=== PATIENT | male | born 1945 | race Caucasian/White ===

== ENCOUNTER 2018-12-25 15:45 | Emergency (ER) | payer MEDICARE, MEDICAID ==
[2018-12-25 16:03] VITALS: BP 162/89
--- NOTE | 2018-12-25 16:57 | UC ---
Skin Complaint HPI - HPI Summary HPI Summary: Mr. Alex has had a painful lesion on his left forearm for about a week. He is unaware of any injury. At one point it puffed up and pus came out. Since that time there are other areas that have opened up and a little bit of pulses has come out. - History of Current Complaint Chief Complaint: UCUpperExtremity Stated Complaint: LEFT ARM SORES-SKIN ISSUE Hx Obtained From: Patient Onset/Duration: Gradual Onset, Lasting Days - 7 Timing: Constant Onset Severity: Mild Current Severity: Mild Pain Intensity: 2 Aggravating Factor(s): Nothing Alleviating Factor(s): Nothing Associated Signs & Symptoms: Positive: Negative - Allergy/Home Medications Allergies/Adverse Reactions: Allergies Allergy/AdvReac Type Severity Reaction Status Date / Time No Known Allergies Allergy Verified 12/25/18 16:03 Home Medications: Home Medications Glimepiride 1 tab PO BID 12/25/18 [History Confirmed 12/25/18] Linagliptin (NF) [Tradjenta (NF)] 1 tab PO DAILY 12/25/18 [History Confirmed 10/08] PMH/Surg Hx/FS Hx/Imm Hx Endocrine History: Diabetes, Dyslipidemia GI/ History: Gastroesophageal Reflux - Surgical History Surgical History: Yes Surgery Procedure, Year, and Place: 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 cholecystectomy. MOLES REMOVED, BENIGN - Social History Alcohol Use: None Substance Use Type: None Smoking Status (MU): Current Every Day Smoker Type: Cigarettes Amount Used/How Often: 1 PPD Review of Systems All Other Systems Reviewed And Are Negative: Yes Constitutional: Positive: Negative Skin: Positive: Rash Neurovascular: Positive: Negative Musculoskeletal: Positive: Negative Neurological: Positive: Negative Physical Exam - Summary Physical Exam Summary: He is nontoxic in appearance with stable vital signs. Triage Information Reviewed: Yes Appearance: Well-Appearing Vital Signs: Initial Vital Signs Temp 98.4 F 12/25/18 16:00 Pulse 89 12/25/18 16:00 Resp 16 12/25/18 16:00 BP 162/89 12/25/18 16:00 Pulse Ox 98 12/25/18 16:00 Vital Signs Reviewed: Yes Musculoskeletal Exam: Normal Neurological Exam: Normal Psychological Exam: Normal Skin: Positive: Significant Lesion(s) - He has an erythematous, indurated, nonfluctuant area on his left dorsal forearm. It is spontaneously draining. It is tender. Course/Dx - Course Course Of Treatment: He has a cellulitic area that may be forming an abscess. There is nothing to drain at this time aside from what is draining spontaneously. I wouldn't be surprised this is MRSA and I'm going to treat him with doxycycline. - Diagnoses Provider Diagnosis: Cellulitis and abscess of upper extremity Discharge - Sign-Out/Discharge Documenting (check all that apply): Patient Departure All imaging exams completed and their final reports reviewed: No Studies - Discharge Plan Condition: Stable Disposition: HOME Patient Education Materials: Cellulitis (ED) Referrals: Marialuisa See MD [Primary Care Provider] - Additional Instructions: If this lesion is not improving in 2 days or if you develop a fever or any other symptoms please code to the emergency department for further evaluation. - Billing Disposition and Condition Condition: STABLE Disposition: Home
== END 2018-12-25 17:00 | disposition home or self-care (01) ==
LOC: UCEAST 15:45
DX: L03.114 Cellulitis of left upper limb (principal); E11.9 Type 2 diabetes mellitus without complications; E78.5 Hyperlipidemia, unspecified; K21.9 Gastro-esophageal reflux disease without esophagitis; F17.210 Nicotine dependence, cigarettes, uncomplicated
CPT/HCPCS: 99212; G0463

== ENCOUNTER 2020-08-25 11:09 | Inpatient (IN) ==
[2020-08-25 12:00] LABS: ABS Basophils 0.1 10^3/ul (0-0.2); ABS Eosinophils 0.2 10^3/ul (0-0.6); ABS Lymphocytes 1.4 10^3/ul (1.0-4.8); ABS Monocytes 0.7 10^3/ul (0-0.8); ABS Neutrophils 3.6 10^3/ul (1.5-7.7); Eosinophil % 2.6 %; Hematocrit 38 % (42-52); Hemoglobin 12.5 g/dL (14.0-18.0); Lymphocyte % 23.2 %; Mean Corpuscular HGB Conc 33 g/dL (31-36); Mean Corpuscular Hemoglobin 31 pg (27-31); Mean Corpuscular Volume 93 fL (80-94); Mean Platelet Volume 7.1 fL (7.4-10.4); Nucleated Red Blood Cells % 0.1; Platelet Count 101 10^3/uL (150-450); Red Blood Count 4.07 10^6 /uL (4.18-5.48); Red Cell Distribution Width 15 % (10-15); White Blood Count 5.9 10^3/uL (3.5-10.8)
[2020-08-25 12:18] LABS: ALT 16 U/L (7-52); Albumin 2.3 g/dL (3.2-5.2); Albumin/Globulin Ratio 0.5 (1-3); Alkaline Phosphatase 85 U/L (34-104); BUN/Creatinine Ratio 18.1 (8-20); Blood Urea Nitrogen 25 mg/dL (6-24); C Reactive Protein 19.48 mg/L (<8.01); CO2 Carbon Dioxide 26 mmol/L (22-32); Calcium 8.2 mg/dL (8.6-10.3); Chloride 102 mmol/L (101-111); EGFR African American 61.1 (>60); EGFR Non-African American 50.5 (>60); Globulin 4.8 g/dL (2-4); Glucose 174 mg/dL (70-100); Lipase 25 U/L (11.0-82.0); Magnesium 1.8 mg/dL (1.9-2.7); Sodium 133 mmol/L (135-145); Total Protein 7.1 g/dL (6.4-8.9)
[2020-08-25 12:19] LABS: Troponin I 0.27 ng/mL (<0.03)
[2020-08-25 12:26] LABS: Acetaminophen < 15 mcg/mL; Alcohol, S < 10 mg/dL (<10)
[2020-08-25 12:32] LABS: INR 1.38 (0.82-1.09)
[2020-08-25 12:47] LABS: AST 32 U/L (13-39); Anion Gap 5 mmol/L (2-11); Potassium 4.2 mmol/L (3.5-5.0)
[2020-08-25] MEDS ORDERED: fentaNYL 100 mcg/2 ml 50 MCG/ML VIAL IV SLOW PU ONE (13:59)
[2020-08-25] MEDS ORDERED: Magnesium Hydroxide LIQ 30 ML UDC PO PRN (14:08)
[2020-08-25] MEDS ORDERED: Ondansetron 4 mg VIAL 2 MG/ML 2 ml VIAL IV PRN (14:08)
[2020-08-25] MEDS ORDERED: Furosemide 40 mg/4 ml IV VIAL IV ONE (14:15)
[2020-08-25] MEDS ORDERED: Dextrose 50% Syringe 50 ml 25 GM/50 ML SYRINGE IV PUSH PRN (14:36)
[2020-08-25] MEDS ORDERED: Furosemide 40 mg/4 ml IV VIAL IV SCH (15:00)
[2020-08-25] MEDS ORDERED: Labetalol IV 5 MG/ML 20 ml VIAL IV PUSH PRN (15:00)
[2020-08-25 15:18] LABS: Body Fluid Source Peritonial Fluid
[2020-08-25 16:48] LABS: Body Fluid Mono 27 %
[2020-08-25 16:54] LABS: TSH Ultra Thyroid Stim Horm 1.55 mcIU/mL (0.34-5.60)
[2020-08-25 16:58] LABS: Ferritin 34.8 ng/mL (24-336)
[2020-08-25 17:07] LABS: Hepatitis B Surface Antigen Nonreactive (Nonreactive)
[2020-08-25 17:12] LABS: Hepatitis A Ab IgM Negative (Negative)
[2020-08-25 17:13] LABS: Hepatitis B Core IgM Nonreactive (Nonreactive)
[2020-08-25 17:24] LABS: Hepatitis C Antibody Negative (Negative)
[2020-08-25 17:46] LABS: Troponin I 0.32 ng/mL (<0.03)
[2020-08-25] MEDS: Azithromycin 500 mg/250 ml NS 500 MG/250 ML BAG IVPB SCH (18:49)
[2020-08-25] MEDS: cefTRIAXone 1 gm/50 mL NS BAG 1 GM/50 ML BAG IVPB SCH (18:50)
[2020-08-25] MEDS: Aspirin EC 81 mg TAB.EC (enteric coated) PO SCH (18:50)
[2020-08-25] MEDS: Heparin 5000 UNITS/ML 1 mL VIAL SUBCUT SCH (21:52)
[2020-08-25] MEDS ORDERED: Insulin GLARGINE 100 un/ml 10 ml VIAL SUBCUT SCH (23:00)
[2020-08-26] MEDS: Heparin 5000 UNITS/ML 1 mL VIAL SUBCUT SCH ×3 (06:00→20:59)
[2020-08-26 06:27] LABS: ALT 11 U/L (7-52); AST 24 U/L (13-39); Albumin 1.7 g/dL (3.2-5.2); Albumin/Globulin Ratio 0.5 (1-3); Alkaline Phosphatase 68 U/L (34-104); Anion Gap 4 mmol/L (2-11); BUN/Creatinine Ratio 19.4 (8-20); Blood Urea Nitrogen 28 mg/dL (6-24); CO2 Carbon Dioxide 27 mmol/L (22-32); Calcium 7.7 mg/dL (8.6-10.3); Chloride 104 mmol/L (101-111); EGFR African American 58.2 (>60); EGFR Non-African American 48.1 (>60); Globulin 3.4 g/dL (2-4); Glucose 121 mg/dL (70-100); Potassium 4.3 mmol/L (3.5-5.0); Sodium 135 mmol/L (135-145); Total Protein 5.1 g/dL (6.4-8.9)
[2020-08-26 06:29] LABS: Troponin I 0.25 ng/mL (<0.03)
[2020-08-26 06:38] LABS: INR 1.55 (0.82-1.09)
[2020-08-26 07:10] LABS: Hematocrit 30 % (42-52); Mean Corpuscular HGB Conc 33 g/dL (31-36); Mean Corpuscular Hemoglobin 31 pg (27-31); Mean Corpuscular Volume 93 fL (80-94); Red Blood Count 3.24 10^6 /uL (4.18-5.48); Red Cell Distribution Width 15 % (10-15); White Blood Count 4.2 10^3/uL (3.5-10.8)
[2020-08-26] MEDS: Insulin GLARGINE 100 un/ml 10 ml VIAL SUBCUT SCH (08:29)
[2020-08-26] MEDS: Aspirin EC 81 mg TAB.EC (enteric coated) PO SCH (08:32)
[2020-08-26 08:44] LABS: ABS Basophils 0.1 10^3/ul (0-0.2); ABS Eosinophils 0.1 10^3/ul (0-0.6); ABS Lymphocytes 1.1 10^3/ul (1.0-4.8); ABS Monocytes 0.6 10^3/ul (0-0.8); ABS Neutrophils 2.4 10^3/ul (1.5-7.7); Eosinophil % 2.2 %; Lymphocyte % 26.5 %; Mean Platelet Volume 7.2 fL (7.4-10.4); Nucleated Red Blood Cells % 0.1; Platelet Count 69 10^3/uL (150-450)
[2020-08-26] MEDS ORDERED: Furosemide 40 mg/4 ml IV VIAL IV SCH (09:07)
[2020-08-26] MEDS: cefTRIAXone 1 gm/50 mL NS BAG 1 GM/50 ML BAG IVPB SCH (15:29)
[2020-08-26 16:17] LABS: BUN/Creatinine Ratio 20.8 (8-20); Calcium 7.6 mg/dL (8.6-10.3); EGFR African American 53.8 (>60); EGFR Non-African American 44.5 (>60); Potassium 4.5 mmol/L (3.5-5.0)
[2020-08-26] MEDS: Azithromycin 500 mg/250 ml NS 500 MG/250 ML BAG IVPB SCH (16:18)
[2020-08-27] MEDS: Heparin 5000 UNITS/ML 1 mL VIAL SUBCUT SCH ×3 (05:28→20:33)
[2020-08-27 06:17] LABS: Albumin 1.7 g/dL (3.2-5.2); Albumin/Globulin Ratio 0.5 (1-3); BUN/Creatinine Ratio 21.9 (8-20); Calcium 7.5 mg/dL (8.6-10.3); EGFR African American 51.5 (>60); EGFR Non-African American 42.6 (>60); Globulin 3.6 g/dL (2-4); Potassium 4.4 mmol/L (3.5-5.0); Total Bilirubin 0.5 mg/dL (0.2-1.0); Total Protein 5.3 g/dL (6.4-8.9)
[2020-08-27 06:57] LABS: ABS Basophils 0.1 10^3/ul (0-0.2); ABS Eosinophils 0.2 10^3/ul (0-0.6); ABS Lymphocytes 1.5 10^3/ul (1.0-4.8); ABS Monocytes 0.7 10^3/ul (0-0.8); ABS Neutrophils 2.4 10^3/ul (1.5-7.7); Eosinophil % 3.1 %; Hematocrit 32 % (42-52); Hemoglobin 10.5 g/dL (14.0-18.0); Lymphocyte % 31.2 %; Mean Corpuscular HGB Conc 32 g/dL (31-36); Mean Corpuscular Hemoglobin 31 pg (27-31); Mean Corpuscular Volume 95 fL (80-94); Mean Platelet Volume 7.7 fL (7.4-10.4); Nucleated Red Blood Cells % 0.1; Platelet Count 70 10^3/uL (150-450); Red Blood Count 3.41 10^6 /uL (4.18-5.48); Red Cell Distribution Width 16 % (10-15); White Blood Count 4.9 10^3/uL (3.5-10.8)
[2020-08-27] MEDS: Insulin GLARGINE 100 un/ml 10 ml VIAL SUBCUT SCH (09:00)
[2020-08-27] MEDS ORDERED: Furosemide 40 mg/4 ml IV VIAL IV SCH (09:00)
[2020-08-27] MEDS: Albumin Human 25% 25 GM/100 ML BTL IV SCH ×3 (13:44→15:42)
[2020-08-27] MEDS: cefTRIAXone 1 gm/50 mL NS BAG 1 GM/50 ML BAG IVPB SCH (15:42)
[2020-08-27] MEDS ORDERED: Albumin Human 25% 12.5 GM/50 ML BTL IV ONE (15:45)
[2020-08-27] MEDS: Azithromycin 500 mg/250 ml NS 500 MG/250 ML BAG IVPB SCH (16:20)
[2020-08-28] MEDS: Heparin 5000 UNITS/ML 1 mL VIAL SUBCUT SCH (05:29)
[2020-08-28 07:00] LABS: ABS Eosinophils 0.2 10^3/ul (0-0.6); ABS Lymphocytes 1.2 10^3/ul (1.0-4.8); ABS Monocytes 0.6 10^3/ul (0-0.8); ABS Neutrophils 2.1 10^3/ul (1.5-7.7); Eosinophil % 4.6 %; Hematocrit 30 % (42-52); Lymphocyte % 29.2 %; Mean Corpuscular HGB Conc 33 g/dL (31-36); Mean Corpuscular Hemoglobin 31 pg (27-31); Mean Corpuscular Volume 93 fL (80-94); Mean Platelet Volume 7.3 fL (7.4-10.4); Nucleated Red Blood Cells % 0.1; Platelet Count 61 10^3/uL (150-450); Red Blood Count 3.23 10^6 /uL (4.18-5.48); Red Cell Distribution Width 15 % (10-15); White Blood Count 4.2 10^3/uL (3.5-10.8)
[2020-08-28 07:01] LABS: Albumin 2.5 g/dL (3.2-5.2); Albumin/Globulin Ratio 0.8 (1-3); BUN/Creatinine Ratio 23.6 (8-20); Calcium 8.1 mg/dL (8.6-10.3); EGFR African American 52.7 (>60); EGFR Non-African American 43.5 (>60); Globulin 3.3 g/dL (2-4); Potassium 4.3 mmol/L (3.5-5.0); Total Bilirubin 0.7 mg/dL (0.2-1.0); Total Protein 5.8 g/dL (6.4-8.9)
[2020-08-28] MEDS: Insulin GLARGINE 100 un/ml 10 ml VIAL SUBCUT SCH (10:12)
[2020-08-28 13:57] LABS: Mitochondria M2 Antibody <0.1 U
[2020-08-28] MEDS: Albumin Human 25% 25 GM/100 ML IV SCH ×3 (13:58→17:53)
[2020-08-28] MEDS: cefTRIAXone 1 gm/50 mL NS BAG 1 GM/50 ML BAG IVPB SCH (15:36)
[2020-08-28] MEDS ORDERED: Albuterol HFA INHALER 8 gm MDI INH PRN (17:48)
[2020-08-29 05:37] LABS: ABS Basophils 0.1 10^3/ul (0-0.2); ABS Eosinophils 0.2 10^3/ul (0-0.6); ABS Lymphocytes 1.1 10^3/ul (1.0-4.8); ABS Monocytes 0.5 10^3/ul (0-0.8); ABS Neutrophils 2.2 10^3/ul (1.5-7.7); Eosinophil % 4.6 %; Hematocrit 29 % (42-52); Hematocrit for Retic CNT 29 % (42-52); Hemoglobin 9.6 g/dL (14.0-18.0); Lymphocyte % 27.7 %; Mean Corpuscular HGB Conc 33 g/dL (31-36); Mean Corpuscular Hemoglobin 31 pg (27-31); Mean Corpuscular Volume 94 fL (80-94); Mean Platelet Volume 7.4 fL (7.4-10.4); Platelet Count 59 10^3/uL (150-450); RBC Retic Count 3.06 10^6/uL (4.18-5.48); Red Blood Count 3.06 10^6 /uL (4.18-5.48); Red Cell Distribution Width 16 % (10-15)
[2020-08-29 05:40] LABS: Corrected Retic Count 0.6 % (0.5-1.5); Immature Retic Fraction 0.36
[2020-08-29 05:45] LABS: INR 1.58 (0.82-1.09)
[2020-08-29 05:54] LABS: % Iron Saturation 12 % (15-55); ALT 11 U/L (7-52); AST 23 U/L (13-39); Alkaline Phosphatase 57 U/L (34-104); Anion Gap 4 mmol/L (2-11); BUN/Creatinine Ratio 26.4 (8-20); Blood Urea Nitrogen 39 mg/dL (6-24); CO2 Carbon Dioxide 26 mmol/L (22-32); Calcium 8.2 mg/dL (8.6-10.3); Chloride 104 mmol/L (101-111); EGFR African American 56.4 (>60); EGFR Non-African American 46.6 (>60); Glucose 175 mg/dL (70-100); Iron 23 ug/dL (50-212); LDH 133 U/L (140-271); Potassium 4.5 mmol/L (3.5-5.0); Sodium 134 mmol/L (135-145); Total Iron Binding Capacity 193 mcg/dL (250-450); Transferrin 138 mg/dL (203-362); Unsaturated Iron Binding < 178 ug/dL
[2020-08-29 06:16] LABS: Folate 6.76 ng/mL (5.90-24.80)
[2020-08-29 06:17] LABS: Vitamin B12 332 pg/mL (180-914)
[2020-08-29 09:25] LABS: Hepatitis B Core IgM Nonreactive (Nonreactive)
[2020-08-29] MEDS: Insulin GLARGINE 100 un/ml 10 ml VIAL SUBCUT SCH (10:13)
[2020-08-29 10:40] LABS: Albumin, BF 0.6 g/dL; Fluid Type, Albumin PERITONEAL
[2020-08-29] MEDS: Albumin Human 25% 25 GM/100 ML IV SCH ×3 (14:14→16:28)
[2020-08-29] MEDS ORDERED: Labetalol IV 5 MG/ML 20 ml VIAL IV PUSH PRN (16:06)
[2020-08-29] MEDS: cefTRIAXone 1 gm/50 mL NS BAG 1 GM/50 ML BAG IVPB SCH (16:32)
[2020-08-30 06:25] LABS: ABS Basophils 0.1 10^3/ul (0-0.2); ABS Eosinophils 0.1 10^3/ul (0-0.6); ABS Lymphocytes 1.1 10^3/ul (1.0-4.8); ABS Monocytes 0.6 10^3/ul (0-0.8); ABS Neutrophils 2.3 10^3/ul (1.5-7.7); Eosinophil % 3.6 %; Hematocrit 26 % (42-52); Hemoglobin 8.9 g/dL (14.0-18.0); Lymphocyte % 25.6 %; Mean Corpuscular HGB Conc 34 g/dL (31-36); Mean Corpuscular Hemoglobin 32 pg (27-31); Mean Corpuscular Volume 93 fL (80-94); Mean Platelet Volume 7.4 fL (7.4-10.4); Nucleated Red Blood Cells % 0.1; Platelet Count 57 10^3/uL (150-450); Red Blood Count 2.81 10^6 /uL (4.18-5.48); Red Cell Distribution Width 15 % (10-15); White Blood Count 4.2 10^3/uL (3.5-10.8)
[2020-08-30 06:38] LABS: C Reactive Protein 13.22 mg/L (<8.01); Calcium 8.3 mg/dL (8.6-10.3); EGFR African American 58.7 (>60); EGFR Non-African American 48.5 (>60); Potassium 4.5 mmol/L (3.5-5.0)
[2020-08-30] MEDS: Insulin GLARGINE 100 un/ml 10 ml VIAL SUBCUT SCH (08:51)
[2020-08-30] MEDS ORDERED: Furosemide 20 mg/2 ml IV VIAL IV ONE (13:09)
[2020-08-30 13:52] LABS: Ceruloplasmin 18.7 mg/dL
[2020-08-30] MEDS: cefTRIAXone 1 gm/50 mL NS BAG 1 GM/50 ML BAG IVPB SCH (15:11)
[2020-08-31] MEDS: Insulin GLARGINE 100 un/ml 10 ml VIAL SUBCUT SCH (09:06)
[2020-08-31 09:32] LABS: ABS Basophils 0.1 10^3/ul (0-0.2); ABS Eosinophils 0.2 10^3/ul (0-0.6); ABS Lymphocytes 1.1 10^3/ul (1.0-4.8); ABS Monocytes 0.6 10^3/ul (0-0.8); ABS Neutrophils 3.4 10^3/ul (1.5-7.7); Eosinophil % 3.4 %; Hematocrit 30 % (42-52); Hemoglobin 10.1 g/dL (14.0-18.0); Lymphocyte % 20.3 %; Mean Corpuscular HGB Conc 33 g/dL (31-36); Mean Corpuscular Hemoglobin 31 pg (27-31); Mean Corpuscular Volume 95 fL (80-94); Mean Platelet Volume 7.8 fL (7.4-10.4); Platelet Count 70 10^3/uL (150-450); Red Blood Count 3.21 10^6 /uL (4.18-5.48); Red Cell Distribution Width 15 % (10-15); White Blood Count 5.4 10^3/uL (3.5-10.8)
[2020-08-31 09:46] LABS: BUN/Creatinine Ratio 30.4 (8-20); Calcium 8.4 mg/dL (8.6-10.3); EGFR African American 62.7 (>60); EGFR Non-African American 51.8 (>60); Potassium 4.6 mmol/L (3.5-5.0)
[2020-09-01 06:57] LABS: Hematocrit 29 % (42-52); Hemoglobin 9.5 g/dL (14.0-18.0); Mean Corpuscular HGB Conc 33 g/dL (31-36); Mean Corpuscular Hemoglobin 31 pg (27-31); Mean Corpuscular Volume 94 fL (80-94); Mean Platelet Volume 7.9 fL (7.4-10.4); Platelet Count 66 10^3/uL (150-450); Red Blood Count 3.05 10^6 /uL (4.18-5.48); Red Cell Distribution Width 16 % (10-15); White Blood Count 4.7 10^3/uL (3.5-10.8)
[2020-09-01 07:04] LABS: BUN/Creatinine Ratio 33.1 (8-20); Calcium 8.3 mg/dL (8.6-10.3); EGFR African American 67.3 (>60); EGFR Non-African American 55.6 (>60); Magnesium 1.9 mg/dL (1.9-2.7)
[2020-09-01 07:10] LABS: Potassium 5.1 mmol/L (3.5-5.0)
[2020-09-01] MEDS: Insulin GLARGINE 100 un/ml 10 ml VIAL SUBCUT SCH (08:31)
[2020-09-03] MEDS ORDERED: Morphine 2 MG/ML SYRINGE IV ONE
[2020-09-03] MEDS ORDERED: Morphine 15 mg TAB (NF) PO PRN (09:33)
[2020-09-03] MEDS: Morphine ORAL.SOLN 10 mg 2 mg/ml UDC 5 ml (10 mg) PO PRN ×2 (10:01→14:36)
[2020-09-03] MEDS ORDERED: Senna TAB 8.6 mg TAB PO PRN (15:08)
[2020-09-04] MEDS: Morphine ORAL.SOLN 10 mg 2 mg/ml UDC 5 ml (10 mg) PO PRN ×4 (00:52→20:50)
[2020-09-05] MEDS: Morphine ORAL.SOLN 10 mg 2 mg/ml UDC 5 ml (10 mg) PO PRN (01:29)
[2020-09-05 11:07] VITALS: BP 127/48
== END 2020-09-05 17:00 | DRG 432 ==
LOC: ED 11:09 → MEDTELE 14:08 → MED 09-02 01:51
PROVIDERS: ADMIT Hospitalist; ATTEND Pediatrics